=== PATIENT | male | born 1995 | race Two or more races ===

== ENCOUNTER 2024-04-30 00:34 | Inpatient (IN) | payer MEDICAID ==
[~2024-04-30] VITALS: Ht 172.7 cm; Wt 74.7 kg
[2024-04-30] MEDS: HALOPERIDOL LACTATE 5 MG/ML VIAL IM ONE ×2 (02:18)
[2024-04-30] MEDS: DiphenhydrAMINE HCL 50 MG/ML VIAL IM ONE ×2 (02:18→02:31)
[2024-04-30] MEDS: LORazepam 2 MG/ML VIAL IM ONE ×2 (02:25→02:30)
[2024-04-30 02:57] LABS: COVID AG,FIA SOURCE NASAL SWAB; SARS-COV2 (COVID) ANTIGEN,FIA Negative (Negative)
[2024-04-30 04:50] LABS: BASOPHILS % (AUTO) 0.2 % (0.0-2.0); EOSINOPHILS % (AUTO) 0.5 % (1.0-6.0); HEMATOCRIT 53.5 % (41-53); HEMOGLOBIN 17.8 g/dL (13.5-17.5); LYMPHOCYTES # (AUTO) 2.8 K/uL (1.0-4.8); LYMPHOCYTES % (AUTO) 21.8 % (22.0-44.0); MEAN CORPUSCULAR HEMOGLOBIN 30.5 pg (26.0-34.0); MEAN CORPUSCULAR HGB CONC 33.2 G/dL (31.0-37.0); MEAN CORPUSCULAR VOLUME 92 fL (80-100); MONOCYTES # (AUTO) 1.3 K/uL (0.1-1.0); MONOCYTES % (AUTO) 10.4 % (2.0-9.0); NEUTROPHILS # (AUTO) 8.6 K/uL (1.8-7.7); NEUTROPHILS % (AUTO) 67.1 % (40.0-70.0); PLATELET COUNT (AUTO) 297 K/uL (150-450); RED BLOOD CELL COUNT(AUTO) 5.83 MIL/uL (4.50-5.90); RED CELL DISTRIBUTION WIDTH 13.1 % (11.5-14.5); WHITE BLOOD COUNT (AUTO) 12.9 K/uL (4.5-11.0)
[2024-04-30 05:00] LABS: ANION GAP 17 mmol/L (8-16); CALCIUM, TOTAL 9.8 mg/dL (8.8-10.5); CARBON DIOXIDE 21 mmol/L (22-29); CHLORIDE 102 mmol/L (98-107); CREATININE 1.48 mg/dL (0.60-1.30); GLOMERULAR FILTR. RATE CALC 57 mL/min (>60); GLUCOSE,RANDOM 100 mg/dL (70-110); POTASSIUM 4.3 mmol/L (3.5-5.1); SODIUM SERUM 140 mmol/L (136-145); UREA NITROGEN, BLOOD 27 mg/dL (7-18)
[2024-04-30 05:03] LABS: ALCOHOL, BLOOD (SERUM) < 3 mg/dL (0-10)
[2024-04-30] MEDS ORDERED: MAG HYDROX/ALUMINUM HYD/SIMETH ES 30 ML SUSPENSION UDCUP PO PRN (10:45)
[2024-04-30] MEDS ORDERED: LOPERAMIDE HCL 2 MG CAPSULE PO PRN (10:45)
[2024-04-30] MEDS ORDERED: MAGNESIUM HYDROXIDE SUSPENSION 30 ML UDCUP PO PRN (10:45)
[2024-04-30] MEDS ORDERED: ACETAMINOPHEN 325 MG TABLET PO PRN (10:45)
[2024-04-30 16:40] VITALS: O2SAT 97
[2024-04-30 17:08] VITALS: BP 143/90; PULSE 110; RESP 16; TEMP 97.1; O2SAT 99
[2024-04-30] MEDS ORDERED: INFLUENZA VIRUS VACCINE TVS (6MO+) 2024-25/PF 45 MCG/0.5 ML SYRINGE IM. ONE (18:30)
[2024-04-30 20:21] VITALS: BP 124/87; PULSE 98; RESP 18; TEMP 97; O2SAT 97
[2024-05-01 08:37] VITALS: BP 130/66; PULSE 100; RESP 18; TEMP 97.2; O2SAT 98
[2024-05-01] MEDS ORDERED: GuaiFENesin/D-METHORPHAN [SUGAR-FREE] 200-20MG/10 ML SYRUP UDCUP PO PRN (10:15)
[2024-05-01] MEDS ORDERED: LOPERAMIDE HCL 2 MG CAPSULE PO PRN (10:15)
[2024-05-01] MEDS ORDERED: MAG HYDROX/ALUMINUM HYD/SIMETH ES 30 ML SUSPENSION UDCUP PO PRN (10:15)
[2024-05-01] MEDS ORDERED: ACETAMINOPHEN 325 MG TABLET PO PRN (10:15)
[2024-05-01] MEDS ORDERED: CloNIDine HCL 0.1 MG TABLET PO PRN (10:15)
[2024-05-01] MEDS ORDERED: ONDANSETRON 4 MG TABLET PO PRN (10:15)
[2024-05-01] MEDS ORDERED: ALBUTEROL SULFATE HFA 90 MCG/PUFF 8 GM INHALER IH PRN (10:15)
[2024-05-01] MEDS ORDERED: PETROLATUM,WHITE 28 GM JELLY TP PRN (10:15)
[2024-05-01] MEDS ORDERED: NICOTINE 14 MG/24 HOUR PATCH TD PRN (10:15)
[2024-05-01] MEDS ORDERED: IBUPROFEN 400 MG TABLET PO PRN (10:15)
[2024-05-01] MEDS ORDERED: DOCUSATE SODIUM 100 MG CAPSULE PO PRN (10:15)
[2024-05-01] MEDS ORDERED: MAGNESIUM HYDROXIDE SUSPENSION 30 ML UDCUP PO PRN (10:15)
[2024-05-01] MEDS: LORazepam 2 MG TABLET PO PRN (18:55)
[2024-05-01 20:42] LABS: APPEARANCE,URINE CLEAR (CLEAR); BILIRUBIN,URINE NEGATIVE (NEGATIVE); COLOR,URINE YELLOW (YELLOW); GLUCOSE, URINE (UA) NEGATIVE (NEGATIVE); KETONES,URINE NEGATIVE (NEGATIVE); LEUKOCYTE ESTERASE ,URINE NEGATIVE (NEGATIVE); NITRATE,URINE NEGATIVE (NEGATIVE); OCCULT BLOOD,URINE NEGATIVE (NEGATIVE); PROTEIN,URINE TRACE mg/dL (NEGATIVE); SPECIFIC GRAVITIY, URINE 1.036 (1.003-1.030); UROBILINOGEN,URINE <=1.0 mg/dL (<=1.0)
[2024-05-01 20:49] LABS: ALCOHOL, URINE DRUG SCREEN NEGATIVE (NEGATIVE); AMPHET/METH SCREEN,URINE POSITIVE (NEGATIVE); BARBITURATE SCREEN, URINE NEGATIVE (NEGATIVE); BENZODIAZEPINES SCREEN,URINE NEGATIVE (NEGATIVE); CANNABINOID SCREEN,URINE NEGATIVE (NEGATIVE); COCAINE SCREEN,URINE NEGATIVE (NEGATIVE); METHADONE SCREEN, URINE NEGATIVE (NEGATIVE); OPIATE SCREEN,URINE NEGATIVE (NEGATIVE); PHENCYCLIDINE SCREEN,URINE NEGATIVE (NEGATIVE)
[2024-05-01] MEDS: ZOLPIDEM TARTRATE 10 MG TABLET PO PRN (21:19)
[2024-05-01] MEDS: HALOPERIDOL 5 MG TABLET PO PRN (21:19)
[2024-05-01] MEDS: RisperiDONE 1 MG TABLET PO SCH (21:19)
[2024-05-01 21:33] VITALS: BP 120/79; PULSE 76; RESP 18; TEMP 97.4; O2SAT 98
[2024-05-02 08:27] LABS: HEMOGLOBIN A1C 4.7 % (3.8-5.6)
[2024-05-02 08:31] LABS: CHOL/HDL RATIO 3.2 (4.2-7.3)
[2024-05-02 08:40] LABS: THYROID STIMULATING HORMONE 1.51 uIU/mL (0.36-3.74)
[2024-05-02 09:05] VITALS: BP 106/61; PULSE 88; RESP 18; TEMP 97.8; O2SAT 99
[2024-05-02 20:30] VITALS: BP 130/80; PULSE 98; RESP 17; TEMP 98.1; O2SAT 97
[2024-05-03 08:40] VITALS: BP 139/89; PULSE 82; RESP 18; TEMP 97.7; O2SAT 100
[2024-05-03] MEDS ORDERED: RISP-31 PO (11:17)
== END 2024-05-03 16:45 | disposition home or self-care (01) | DRG 776 ==
LOC: EMS 00:35 → 3EC 15:12 → UNDODISIN 05-02 18:07
PROVIDERS: ADMIT Psychiatry & Neurology Psychiatry; ATTEND Psychiatry & Neurology Psychiatry
PROC: GZHZZZZ Group Psychotherapy (ICD-10-PCS; principal; 2024-05-01)
DX: F15.159 Other stimulant abuse with stimulant-induced psychotic disorder, unspecified (principal); N17.9 Acute kidney failure, unspecified; F25.9 Schizoaffective disorder, unspecified; F17.210 Nicotine dependence, cigarettes, uncomplicated; Z20.822 Contact with and (suspected) exposure to COVID-19; R45.851 Suicidal ideations; D72.829 Elevated white blood cell count, unspecified; Z79.899 Other long term (current) drug therapy; Z71.51 Drug abuse counseling and surveillance of drug abuser
CPT/HCPCS: 80048; 80061; 80307; 81003; 83036; 84443; 85025; 99285; G0480; J1200; J1630; J2060